=== PATIENT | female | born 1985 | race Caucasian/White ===

== ENCOUNTER 2016-12-03 10:21 | Emergency (ER) | payer SELFPAY ==
[~2016-12-03] VITALS: Ht 167.6 cm; Wt 145.1 kg
[2016-12-03] MEDS ORDERED: BUPR100T7 PO (10:32)
[2016-12-03] MEDS ORDERED: CARV6.25 PO (10:32)
[2016-12-03] MEDS ORDERED: 0.9 % SODIUM CHLORIDE 10 ML DISP.SYRIN. IV PRN (10:45)
[2016-12-03] MEDS ORDERED: FENTANYL PF 100 MCG/2 ML VIAL. IV ONE ×2 (11:00→12:45)
--- NOTE | 2016-12-03 11:10 | PHYS DOC ---
Past Medical History Past Medical History: Arrhythmia, Depression Past Surgical History: Appendectomy, Cholecystectomy, , Other Additional Past Surgical Histo: INTERNAL HEART LINK-11/2015 Alcohol Use: None Drug Use: None Adult General Chief Complaint Chief Complaint: CHEST PAIN HPI HPI Patient is a 31 year old morbidly obese female who presents the emergency Department today with complaint of chest pain that began approximately 30 minutes prior to arrival here in the emergency department. Patient states that she was upstairs visiting a family member that is been admitted to this facility when she developed sudden onset of substernal chest pain that radiates to her back. Patient denies any history of formally diagnosed heart disease. She states she is currently under evaluation for having an irregular heartbeat in which she has an implantable tracing device. She is followed by a marketing analytics analyst in [facility]. She denies any history of heart attack, heart failure. She denies any history of coagulopathies, previous PEs or DVTs. Patient states that she is currently 6 weeks . Patient reports that she had a recent upper respiratory infection within the past 10 days that was viral in nature. She denies antibiotic use, hospitalization or foreign travel within the past 90 days. Denies nausea, vomiting, upper abdominal pain. She denies palpitations ,exertional dyspnea, orthopnea or PND. Patient states that she was to be on carvedilol. She states that she has not taken the carvedilol in greater than 3 months due to cost restrictions. Review of Systems Review of Systems Constitutional: Denies fever or chills [] Eyes: Denies change in visual acuity, redness, or eye pain [] HENT: Denies nasal congestion or sore throat [] Respiratory: Denies cough or shortness of breath [] Cardiovascular: No additional information not addressed in HPI [] GI: Denies abdominal pain, nausea, vomiting, bloody stools or diarrhea [] : Denies dysuria or hematuria [] Musculoskeletal: Denies back pain or joint pain [] Integument: Denies rash or skin lesions [] Neurologic: Denies headache, focal weakness or sensory changes [] Endocrine: Denies polyuria or polydipsia [] Current Medications Current Medications Current Medications Medications (Trade) Dose Ordered Sig/Cony Start Time Stop Time Status Last Admin Dose Admin Fentanyl Citrate (Fentanyl 2ml Vial) 50 mcg 1X ONCE 12/03/16 12:45 12/03/16 12:50 DC 12/03/16 13:41 50 MCG Info (Do NOT chart on this entry -- for MONITORING) 1 each PRN DAILY PRN 12/03/16 13:00 12/05/16 12:59 Iohexol (Omnipaque 300 Mg/ml) 75 ml 1X ONCE 12/03/16 12:45 12/03/16 12:50 DC 12/03/16 13:59 75 ML Sodium Chloride (Normal Saline Flush) 10 ml QSHIFT PRN 12/03/16 10:45 Allergies Allergies Allergies Coded Allergies Type Severity Reaction Last Updated Verified Sulfa (Sulfonamide Antibiotics) Allergy Intermediate rash 12/03/16 Yes cefaclor Allergy Intermediate rash 12/03/16 Yes cephalexin Allergy Intermediate rash 12/03/16 Yes ketorolac Allergy Intermediate rash 12/03/16 Yes tramadol Allergy Intermediate rash 12/03/16 Yes Physical Exam Physical Exam Constitutional: Well developed, well nourished, no acute distress, non-toxic appearance. Patient is not tachycardic, tachypnea, hypoxic or febrile. She is lying in a low semi-Fowlers position on the exam bed in no acute distress. HENT: Normocephalic, atraumatic, bilateral external ears normal, oropharynx moist, no oral exudates, nose normal. Widespread dental caries and very stages of decay. Eyes: PERRLA, EOMI, conjunctiva normal, no discharge. [] Neck: Normal range of motion, no tenderness, supple, no stridor. Cardiovascular:Heart rate 64 with regular rhythm, no murmur. PMI is not displaced. There is no JVD. Lungs & Thorax: Bilateral breath sounds clear to auscultation [] Abdomen: Bowel sounds normal, soft, no tenderness, no masses, no pulsatile masses. Skin: Warm, dry, no erythema, no rash. [] Back: No tenderness, no CVA tenderness. [] Extremities: No tenderness, no cyanosis, no clubbing, ROM intact, no edema. Neurologic: Alert and oriented X 3, normal motor function, normal sensory function, no focal deficits noted. [] Psychologic: Affect normal, judgement normal, mood normal. [] Current Patient Data Vital Signs Vital Signs Date Time Temp Pulse Resp B/P Pulse Ox O2 Delivery O2 Flow Rate FiO2 12/03/16 10:32 98.0 65 20 147/78 98 Room Air 98.0 Lab Values Laboratory Tests Test 12/03/16 11:00 12/03/16 11:10 Urine Collection Type Unknown Urine Color Yellow Urine Clarity Clear Urine pH 8.0 Urine Specific [place] 1.015 Urine Protein Negativemg/dL (NEG-TRACE) Urine Glucose (UA) Negativemg/dL (NEG) Urine Ketones (Stick) Negativemg/dL (NEG) Urine Blood Small (NEG) Urine Nitrite Negative (NEG) Urine Bilirubin Negative (NEG) Urine Urobilinogen Dipstick 0.2mg/dL (0.2 mg/dL) Urine Leukocyte Esterase Negative (NEG) Urine RBC Occ/HPF (0-2) Urine WBC Occ/HPF (0-4) Urine Squamous Epithelial Cells Many/LPF Urine Bacteria Few/HPF (0-FEW) Urine Mucus Mod/LPF Urine Opiates Screen Neg (NEG) Urine Methadone Screen Neg (NEG) Urine Barbiturates Neg (NEG) Urine Phencyclidine Screen Neg (NEG) Urine Amphetamine/Methamphetamine Neg (NEG) Urine Benzodiazepines Screen Neg (NEG) Urine Cocaine Screen Neg (NEG) Urine Cannabinoids Screen Neg (NEG) Urine Ethyl Alcohol Neg (NEG) White Blood Count 9.2x10^3/uL (4.0-11.0) Red Blood Count 4.20x10^6/uL (3.50-5.40) Hemoglobin 12.1g/dL (12.0-15.5) Hematocrit 36.9% (36.0-47.0) Mean Corpuscular Volume 88fL (79-100) Mean Corpuscular Hemoglobin 29pg (25-35) Mean Corpuscular Hemoglobin Concent 33g/dL (31-37) Red Cell Distribution Width 15.3% (11.5-14.5) H Platelet Count 315x10^3/uL (140-400) Neutrophils (%) (Auto) 59% (31-73) Lymphocytes (%) (Auto) 25% (24-48) Monocytes (%) (Auto) 9% (0-9) Eosinophils (%) (Auto) 6% (0-3) H Basophils (%) (Auto) 1% (0-3) Neutrophils # (Auto) 5.4x10^3uL (1.8-7.7) Lymphocytes # (Auto) 2.3x10^3/uL (1.0-4.8) Monocytes # (Auto) 0.8x10^3/uL (0.0-1.1) Eosinophils # (Auto) 0.6x10^3/uL (0.0-0.7) Basophils # (Auto) 0.1x10^3/uL (0.0-0.2) Prothrombin Time 12.7SEC (11.7-14.0) Prothrombin Time INR 1.0 (0.8-1.1) D-Dimer (Coco) 0.57ug/mlFEU (0.00-0.50) H Maternal Serum HCG Beta Subunit < 1mIU/mL (0-6) Sodium Level 140mmol/L (136-145) Potassium Level 4.3mmol/L (3.5-5.1) Chloride Level 104mmol/L (98-107) Carbon Dioxide Level 31mmol/L (21-32) Anion Gap 5 (6-14) L Blood Urea Nitrogen 9mg/dL (7-20) Creatinine 0.6mg/dL (0.6-1.0) Estimated GFR (Cockcroft-Gault) 116.6 Glucose Level 92mg/dL (70-99) Calcium Level 9.3mg/dL (8.5-10.1) Magnesium Level 2.1mg/dL (1.8-2.4) Total Bilirubin 0.4mg/dL (0.2-1.0) Direct Bilirubin 0.2mg/dL (0.0-0.2) Aspartate Amino Transferase (AST) 21U/L (15-37) Alanine Aminotransferase (ALT) 29U/L (14-59) Alkaline Phosphatase 72U/L (46-116) Creatine Kinase 38U/L (26-192) Creatine Kinase MB (Mass) < 0.5ng/mL (0.0-3.6) Creatine Kinase MB Relative Index % (0-4) Troponin I Quantitative < 0.017ng/mL (0.000-0.055) Total Protein 7.9g/dL (6.4-8.2) Albumin 3.3g/dL (3.4-5.0) L Lipase 68U/L (73-393) L Laboratory Tests 12/03/16 11:10 Laboratory Tests 12/03/16 11:10 EKG EKG Twelve-lead EKG interpreted by Dr. Major was performed at 1031 shows a normal sinus rhythm with a heart rate of 63 bpm. AR interval 0 156 ms with QRS duration 96 ms and a QT duration of 412 ms. There is no evidence of ST elevation or depression suggestive of either ischemia or infarction. Radiology/Procedures Radiology/Procedures [facility] [address] [place] [address] IMAGING REPORT Signed PATIENT: BRAYDEN PARRA ACCOUNT: [id number] : 1985 LOCATION: ER AGE: 31 SEX: F EXAM STATUS: REG ER ORD. PHYSICIAN: GERARDO SALAZAR REASON: chest pain, elevated D-Dimer PROCEDURE: CT ANGIOGRAPHY CHEST EXAM: Chest CT with intravenous contrast. HISTORY: Shortness of air, elevated d-dimer for one day.. TECHNIQUE: Computed tomographic images of the chest were obtained following the administration of 75 cc of Omni 300 intravenous contrast. Multiplanar reformatting was performed. PQRS Compliance Statement: One or more of the following individualized dose reduction techniques were utilized for this examination: 1. Automated exposure control 2. Adjustment of the mA and/or kV according to patient size 3. Use of iterative reconstruction technique COMPARISON: None. FINDINGS: The pulmonary arteries are adequately opacified without main, lobar or proximal segmental pulmonary artery filling defects. Distal segmental and subsegmental arteries are not well evaluated, secondary to attenuation of the x-ray beams given body habitus. The thoracic aorta appears normal in caliber. Heart is normal in size without pericardial effusion. No significant mediastinal lymphadenopathy is seen. Small hilar lymph nodes are suggested bilaterally. No focal consolidation, pleural effusion or pneumothorax is present. Central airways are patent. Overlying soft tissues and visualized osseous structures demonstrate no acute or suspicious process. IMPRESSION: No CT evidence of central pulmonary embolus, consolidation or acute cardiopulmonary process. DICTATED and SIGNED BY: PERCY DELGADO MD DATE: 12/03/16 1435 CC: GERARDO SALAZAR; NO PCP; NON,STAFF ~ Course & Med Decision Making Course & Med Decision Making 1250: Patient is a mildly elevated d-dimer 0.57. Her test is negative. This was confirmed with a serum hCG that is less than 1. Patient has so far an uneventful stay in the emergency department. If patient does have a PE, then she demonstrates no evidence of clot burden. Chest CT angio was ordered to ensure no evidence of a pulmonary embolus. Patient did request another dose of pain medication. She is sitting comfortably in a semi- Fowlers position, watching TV in no acute distress. Patient's had an uncomplicated stay here in the emergency department. She has remained hemodynamically during her entire stay here in the emergency department. While she's been maintained on the front desk monitor, she has had no evidence of apparent cardiac conduction, ST elevation or ST depression. Dragon Disclaimer Dragon Disclaimer This electronic medical record was generated, in whole or in part, using a voice recognition dictation system. Departure Departure Impression: Primary Impression: Chest pain Disposition: HOME, SELF-CARE Condition: GOOD Patient Instructions: Chest Pain (Nonspecific), [id number] Additional Instructions: 1. Your EKG, heart enzymes, other laboratory test, chest x-ray and chest CT here today are negative for heart attack, collapsed lung, pneumonia or blood clot. 2. As previously discussed you are not . The hCG level is less than 1. This is the hormone that would be elevated if you are . 3. Review the discharge instructions provided for self-care and reasons to return to the emergency department. 4. Contact her primary care doctor as well as your marketing analytics analyst on Monday to schedule follow-up appointment. Problem Qualifiers Primary Impression: Chest pain Chest pain type: unspecified Qualified Code: R07.9 - Chest pain, unspecified GERARDO SALAZAR Dec 03, 2016 11:10
[2016-12-03 11:23] LABS: BASO # 0.1 x10^3/uL (0.0-0.2); BASO % 1 % (0-3); EOS % 6 % (0-3); HEMATOCRIT 36.9 % (36.0-47.0); HEMOGLOBIN 12.1 g/dL (12.0-15.5); LYMPH # 2.3 x10^3/uL (1.0-4.8); LYMPH % 25 % (24-48); MEAN CORPUSCULAR HEMOGLOBIN 29 pg (25-35); MEAN CORPUSCULAR HGB CONC 33 g/dL (31-37); MEAN CORPUSCULAR VOLUME 88 fL (79-100); MONO % 9 % (0-9); NEUT % 59 % (31-73); PLATELET COUNT 315 x10^3/uL (140-400); RED CELL DISTRIBUTION WIDTH 15.3 % (11.5-14.5); WHITE BLOOD COUNT 9.2 x10^3/uL (4.0-11.0)
[2016-12-03 11:25] LABS: BILIRUBIN,URINE NEGATIVE (NEG); GLUCOSE,URINE NEGATIVE (NEG); NITRITE,URINE NEGATIVE (NEG); PROTEIN,URINE NEGATIVE (NEG-TRACE); UROBILINOGEN,URINE 0.2 mg/dL (0.2 mg/dL)
[2016-12-03 11:30] LABS: BARBITURATES NEG (NEG); BENZODIAZEPINES NEG (NEG); CANNABINOIDS NEG (NEG); COCAINE NEG (NEG); METHADONE NEG (NEG); OPIATES NEG (NEG); PHENCYCLIDINE NEG (NEG)
[2016-12-03 11:30] LABS: CALCIUM 9.3 mg/dL (8.5-10.1); CREATININE 0.6 mg/dL (0.6-1.0); GFR 116.6; POTASSIUM 4.3 mmol/L (3.5-5.1)
[2016-12-03 11:31] LABS: ETHANOL, URINE NEG (NEG)
[2016-12-03 11:32] LABS: PROTHROMBIN TIME PATIENT 12.7 SEC (11.7-14.0)
--- NOTE | 2016-12-03 11:36 | RAD ---
PORTABLE CHEST 1V Clinical Indication: Midsternal chest pain, shortness of air Comparison: None. Technique: Portable AP view of the chest is obtained. Findings: No focal consolidation, pleural effusion or pneumothorax is seen. Cardiomediastinal silhouette is within normal limits of size. Visualized osseous structures and overlying soft tissues demonstrate no acute finding. IMPRESSION: No focal consolidation or acute radiographic finding.
[2016-12-03 11:37] LABS: ALBUMIN 3.3 g/dL (3.4-5.0); DIRECT BILIRUBIN 0.2 mg/dL (0.0-0.2); MAGNESIUM 2.1 mg/dL (1.8-2.4); TOTAL BILIRUBIN 0.4 mg/dL (0.2-1.0); TOTAL PROTEIN 7.9 g/dL (6.4-8.2)
[2016-12-03 11:38] LABS: BACTERIA,URINE FEW /HPF (0-FEW); RBC,URINE OCC /HPF (0-2); SQUAMOUS EPITHELIAL CELL,UR MANY /LPF; WBC,URINE OCC /HPF (0-4)
[2016-12-03 11:44] LABS: CREATINE KINASE 38 U/L (26-192)
[2016-12-03 11:45] LABS: CKMB MASS < 0.5 ng/mL (0.0-3.6)
--- NOTE | 2016-12-03 12:03 | EKG ---
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
[2016-12-03] MEDS ORDERED: IOHEXOL 300 MG/ML 75 ML VIAL IV ONE (12:45)
[2016-12-03] MEDS ORDERED: CONTRAST GIVEN MC PRN (13:00)
[2016-12-03 14:30] VITALS: BP 122/72
--- NOTE | 2016-12-03 14:48 | RAD ---
EXAM: Chest CT with intravenous contrast. HISTORY: Shortness of air, elevated d-dimer for one day.. TECHNIQUE: Computed tomographic images of the chest were obtained following the administration of 75 cc of Omni 300 intravenous contrast. Multiplanar reformatting was performed. RS Compliance Statement: One or more of the following individualized dose reduction techniques were utilized for this examination: 1. Automated exposure control 2. Adjustment of the mA and/or kV according to patient size 3. Use of iterative reconstruction technique COMPARISON: None. FINDINGS: The pulmonary arteries are adequately opacified without main, lobar or proximal segmental pulmonary artery filling defects. Distal segmental and subsegmental arteries are not well evaluated, secondary to attenuation of the x-ray beams given body habitus. The thoracic aorta appears normal in caliber. Heart is normal in size without pericardial effusion. No significant mediastinal lymphadenopathy is seen. Small hilar lymph nodes are suggested bilaterally. No focal consolidation, pleural effusion or pneumothorax is present. Central airways are patent. Overlying soft tissues and visualized osseous structures demonstrate no acute or suspicious process. IMPRESSION: No CT evidence of central pulmonary embolus, consolidation or acute cardiopulmonary process.
== END 2016-12-03 15:23 | disposition home or self-care (01) ==
LOC: ER 10:21
DX: O26.891 Other specified pregnancy related conditions, first trimester (principal); R07.9 Chest pain, unspecified; E66.01 Morbid (severe) obesity due to excess calories; Z68.43 Body mass index [BMI] 50.0-59.9, adult; Z88.1 Allergy status to other antibiotic agents; Z88.2 Allergy status to sulfonamides; Z88.6 Allergy status to analgesic agent
CPT/HCPCS: 36415; 71010; 71275; 80048; 80076; 80305; 81001; 81025; 82553; 83690; 83735; 84484; 84702; 85027; 85379; 85610; 93005; 96374; 96376; 99285; J3010; Q9967; G0481